=== PATIENT | female | born 1975 | race Caucasian/White ===

== ENCOUNTER 2016-09-17 08:44 | Emergency (ER) | payer OTHER ==
[~2016-09-17] VITALS: Ht 185.4 cm; Wt 77.3 kg
[2016-09-17 09:11] VITALS: BP 132/68; PULSE 90; RESP 18; O2SAT 100
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
== END 2016-09-17 11:23 | disposition home or self-care (01) ==
LOC: SED 08:44
DX: F15.10 Other stimulant abuse, uncomplicated (principal); F17.200 Nicotine dependence, unspecified, uncomplicated; Z88.5 Allergy status to narcotic agent